=== PATIENT | female | born 1960 | race Asian ===

== ENCOUNTER 2024-09-09 08:53 | Inpatient (IN) | payer BC ==
[~2024-09-09] VITALS: Ht 154.9 cm; Wt 44.9 kg
[2024-09-09 08:57] VITALS: O2SAT 99
[2024-09-09] MEDS ORDERED: ONDANSETRON HCL 4MG/2ML INJ IV ONE (09:00)
[2024-09-09] MEDS ORDERED: MORPHINE SULFATE 4 MG/ML INJ (FOR IV/IM USE) IV ONE (09:00)
[2024-09-09 11:17] LABS: HEMATOCRIT 42.2 % (36.0-48.0); HEMOGLOBIN 13.2 g/dL (12.0-16.0); MEAN CORPUSCULAR HEMOGLOBIN 28.5 pg (28.0-32.0); MEAN CORPUSCULAR HGB CONC 31.3 g/dL (31.0-37.0); MEAN CORPUSCULAR VOLUME 91.1 fL (81.0-99.0); PLATELET 178 x1000/uL (130-400); RED BLOOD CELL COUNT 4.63 mill/uL (4.2-5.4); RED CELL DISTRIBUTION WIDTH 13.7 % (11.6-14.6); WHITE BLOOD COUNT 12.9 x1000/uL (4.5-11.0)
[2024-09-09 11:18] LABS: CHLORIDE 104 mEq/L (98-107); SODIUM 142 mEq/L (136-145)
[2024-09-09 11:19] LABS: CARBON DIOXIDE 26 mEq/L (21-32)
[2024-09-09 11:20] LABS: CALCIUM 9.3 mg/dL (8.7-10.4)
[2024-09-09 11:24] LABS: CREATININE 0.6 mg/dL (0.6-1.0); GLUCOSE 96 mg/dL (70-105)
[2024-09-09 11:25] LABS: UREA NITROGEN BLOOD 14 mg/dL (9-23)
[2024-09-09] MEDS: ONDANSETRON HCL 4MG/2ML INJ IV NR (12:30)
[2024-09-09] MEDS: MORPHINE SULFATE 4 MG/ML INJ (FOR IV/IM USE) IV NR (12:36)
[2024-09-09] MEDS: MORPHINE SULFATE 4 MG/ML INJ (FOR IV/IM USE) IV ONE ×2 (12:45→17:43)
[2024-09-09] MEDS: ONDANSETRON HCL 4MG/2ML INJ IV ONE (20:07)
[2024-09-09 21:31] LABS: HEMOGLOBIN 11.8 g/dL (12.0-16.0)
[2024-09-09] MEDS: IOHEXOL-350 100 ML BOTTLE ONE (23:30)
[2024-09-09] MEDS: HYDROMORPHONE HCL/PF 2MG/ML INJ IV ONE (23:51)
[2024-09-10] MEDS ORDERED: ACETAMINOPHEN 325MG TABLET PO PRN (02:15)
[2024-09-10] MEDS ORDERED: CLONIDINE 0.1MG TABLET PO PRN (02:15)
[2024-09-10] MEDS ORDERED: ONDANSETRON HCL 4MG/2ML INJ IV PRN (02:15)
[2024-09-10] MEDS ORDERED: MAGNESIUM/ALUMINUM HYDROXIDE/SIMETHICONE 30ML UDC PO PRN (02:15)
[2024-09-10] MEDS ORDERED: DOCUSATE SODIUM 100MG CAPSULE PO PRN (02:15)
[2024-09-10] MEDS ORDERED: IPRATROPIUM/ALBUTEROL 0.5-3(2.5)MG/3ML NEB HHN PRN (02:15)
[2024-09-10] MEDS: DEXT 5%/0.9% NACL 1,000 ML IV SCH (02:46)
[2024-09-10 03:05] LABS: IRON 32 ug/dL (50-170)
[2024-09-10 03:08] LABS: PHOSPHORUS 3.6 mg/dL (2.5-4.9); TOTAL IRON BINDING CAPACITY 157 ug/dl (250-425)
[2024-09-10 03:12] LABS: PARTIAL THROMBOPLASTIN TIME 28.1 sec (23.4-31.0); PROTHROMBIN TIME 11.1 sec (9.6-11.0); VITAMIN B12 SERUM 907 pg/mL (211-911)
[2024-09-10] MEDS: HYDROCODONE/ACETAMINOPHEN 5/325MG TABLET PO PRN (06:45)
[2024-09-10 08:00] VITALS: BP 102/47; PULSE 63; RESP 18; TEMP 36.6; O2SAT 100
[2024-09-10] MEDS ORDERED: SODIUM CHLORIDE 0.9% 1,000 ML IV NR (09:15)
[2024-09-10] MEDS ORDERED: MORPHINE SULFATE 2 MG/ML INJ (NOT FOR IM USE) IV PRN (09:15)
[2024-09-10 09:37] LABS: CREATINE KINASE MB FRACTION < 0.5 ng/mL (0.5-3.6)
[2024-09-10 09:40] LABS: CREATINE KINASE 125 IU/L (34-145)
[2024-09-10] MEDS ORDERED: NALOXONE HCL 0.4MG/ML VIAL IV PRN ×2 (09:45→10:45)
[2024-09-10 09:58] LABS: TROPONIN I HIGH SENSITIVITY < 4 ng/L (3.0-34)
[2024-09-10] MEDS: SODIUM CHLORIDE 0.9% 1,000 ML IV SCH (11:13)
[2024-09-10 12:09] VITALS: BP 101/48; PULSE 62; RESP 16; TEMP 36.3; O2SAT 99
[2024-09-10 16:00] VITALS: BP 120/76; PULSE 90; RESP 19; TEMP 36.8; O2SAT 100
[2024-09-10 17:11] LABS: CREATINE KINASE MB FRACTION < 0.5 ng/mL (0.5-3.6)
[2024-09-10 17:16] LABS: CREATINE KINASE 130 IU/L (34-145)
[2024-09-10 18:13] LABS: TROPONIN I HIGH SENSITIVITY < 4 ng/L (3.0-34)
[2024-09-10 20:00] VITALS: BP 116/48; PULSE 70; RESP 70; TEMP 36.8; O2SAT 100
[2024-09-10] MEDS: HYDROMORPHONE HCL/PF 2MG/ML INJ IV PRN (21:08)
[2024-09-10 23:38] VITALS: BP 116/48; PULSE 70; RESP 16; TEMP 36.9
[2024-09-11] VITALS: BP 123/59; PULSE 67; RESP 14; TEMP 36.5; O2SAT 99
[2024-09-11 04:00] VITALS: BP 115/50; PULSE 63; RESP 13; TEMP 37.3
[2024-09-11 08:00] VITALS: BP 100/46; PULSE 64; RESP 18; TEMP 36.9; O2SAT 99
[2024-09-11 08:42] LABS: BASOPHILS % 0.3 % (0.0-2.0); EOSINOPHILS % 0.6 % (0.0-5.0); HEMATOCRIT. 33.9 % (36.0-48.0); HEMOGLOBIN. 11.2 g/dL (12.0-16.0); LYMPHOCYTES % 10.7 % (20.0-50.0); MEAN CORPUSCULAR HEMOGLOBIN 29.2 pg (28.0-32.0); MEAN CORPUSCULAR VOLUME 88.5 fL (81.0-99.0); MEAN PLATELET VOLUME 7.5 fl (7.4-10.4); MONOCYTES % 4.8 % (2.0-8.0); NEUTROPHILS % 83.6 % (40.0-76.0); PLATELET 106 x1000/uL (130-400); RED BLOOD CELL COUNT 3.83 mill/uL (4.2-5.4); RED CELL DISTRIBUTION WIDTH 13.6 % (11.6-14.6); WHITE BLOOD COUNT 7.1 x1000/uL (4.5-11.0)
[2024-09-11] MEDS: PANTOPRAZOLE SODIUM 40 MG/VIAL IV SCH (09:00)
[2024-09-11 09:14] LABS: CALCIUM 8.2 mg/dL (8.7-10.4); CARBON DIOXIDE 21 mEq/L (21-32); CHLORIDE 107 mEq/L (98-107); POTASSIUM 3.5 mEq/L (3.5-5.1); SODIUM 141 mEq/L (136-145)
[2024-09-11 09:19] LABS: CREATININE 0.5 mg/dL (0.6-1.0); GLUCOSE 70 mg/dL (70-105)
[2024-09-11 09:20] LABS: ALBUMIN 3.5 g/dL (3.2-4.8); LDL CHOLESTEROL 85 mg/dL (5-100); TRIGLYCERIDE 131 mg/dL (0-150); UREA NITROGEN BLOOD 17 mg/dL (9-23)
[2024-09-11 09:21] LABS: CHOLESTEROL 165 mg/dL (<200); THYROID STIMULATING HORMONE 0.77 uIU/mL (0.55-4.78)
[2024-09-11 09:22] LABS: HDL CHOLESTEROL 52 mg/dL (>65)
[2024-09-11 12:00] VITALS: BP 94/36; PULSE 70; RESP 18; TEMP 37; O2SAT 100
[2024-09-11] MEDS: KETOROLAC 15MG/ML VIAL IV PRN (12:34)
[2024-09-11] MEDS ORDERED: SODIUM CHLORIDE 0.9% 1,000 ML IV SCH (15:45)
[2024-09-11 16:00] VITALS: BP 112/50; PULSE 74; RESP 18; TEMP 36.9; O2SAT 100
== END 2024-09-11 19:49 | disposition short-term general hospital (02) | DRG 551 ==
LOC: ER 09:07 → 5WST 09-10 00:25 → EDBEDREQSVC 09-10 00:29 → EDBEDREQ 09-10 00:29 → EDBEDREQSVC 09-10 06:50
PROVIDERS: ADMIT Hospitalist; ATTEND Hospitalist
DX: S32.19XA Other fracture of sacrum, initial encounter for closed fracture (principal); S32.492A Other specified fracture of left acetabulum, initial encounter for closed fracture; S42.252A Displaced fracture of greater tuberosity of left humerus, initial encounter for closed fracture; S32.592A Other specified fracture of left pubis, initial encounter for closed fracture; E11.9 Type 2 diabetes mellitus without complications; I95.9 Hypotension, unspecified; J84.10 Pulmonary fibrosis, unspecified; E78.00 Pure hypercholesterolemia, unspecified; M47.812 Spondylosis without myelopathy or radiculopathy, cervical region; V18.4XXA Pedal cycle driver injured in noncollision transport accident in traffic accident, initial encounter; Y93.55 Activity, bike riding; Y92.89 Other specified places as the place of occurrence of the external cause; Y99.8 Other external cause status
CPT/HCPCS: 36415; 71250; 73030; 73502; 74174; 74176; 80048; 80061; 82040; 82550; 82553; 82607; 83540; 83550; 83605; 83735; 84100; 84443; 84484; 85014; 85018; 85025; 85027; 86850; 86900; 99285; J1171; J1885; J2270; J2405; J2470; J7030; Q9967